=== PATIENT | male | born 1995 | race African-American/Black ===

== ENCOUNTER 2022-12-30 16:59 | Emergency (ER) | payer MEDICAID ==
[2022-12-30] MEDS ORDERED: Ketorolac 30 MG/ML SDV IVPUSH ONE (17:22)
[2022-12-30] MEDS ORDERED: Sodium Chloride 0.9% 1,000 ML IV STA (17:22)
[2022-12-30] MEDS ORDERED: diphenhydrAMINE 50 MG/ML SDV IVPUSH ONE (17:22)
[2022-12-30] MEDS ORDERED: Sodium Chloride 0.9% 10 ML Syringe FLUSH PRN (17:22)
[2022-12-30] MEDS ORDERED: Metoclopramide 10 MG/2 ML SDV IVPUSH ONE (17:22)
[2022-12-30 17:51] LABS: BASOPHILS ABSOLUTE AUTO 0.02 K/mm3 (0.01-0.08); BASOPHILS PERCENT AUTO 0.4 % (0.1-1.2); EOSINOPHILS ABSOLUTE AUTO 0.01 K/mm3 (0.04-0.54); EOSINOPHILS PERCENT AUTO 0.2 (0.8-7.0); HEMATOCRIT 41.9 % (40.1-51.0); HEMOGLOBIN 14.7 gm/dl (13.7-17.5); IMMATURE GRAN ABSOLUTE AUTO 0.01 K/mm3 (0.00-0.10); IMMATURE GRAN PERCENT AUTO 0.2 % (<=1.0); LYMPHOCYTES ABSOLUTE AUTO 0.78 K/mm3 (1.32-3.57); LYMPHOCYTES PERCENT AUTO 15.2 % (21.8-53.1); MEAN CORPUSCULAR HEMOGLOBIN 30.1 pg (25.7-32.2); MEAN CORPUSCULAR HGB CONC 35.1 g/dl (32.2-35.5); MEAN CORPUSCULAR VOLUME 85.7 fl (79.0-92.2); MEAN PLATELET VOLUME 10.1 fl (9.4-12.3); MONOCYTES ABSOLUTE AUTO 0.84 K/mm3 (0.30-0.82); MONOCYTES PERCENT AUTO 16.4 % (5.3-12.2); NEUTROPHILS ABSOLUTE AUTO 3.47 K/mm3 (1.78-5.38); NEUTROPHILS PERCENT AUTO 67.6 % (34.0-67.9); PLATELET COUNT,PLT 159 K/mm3 (163-337); RED BLOOD CELL COUNT 4.89 M/mm3 (4.63-6.08); WHITE BLOOD CELL COUNT,WBC 5.13 K/mm3 (4.23-9.07)
[2022-12-30 18:46] LABS: A/G RATIO 1.1 (1-2); ALBUMIN 3.9 g/dl (3.4-5.0); ANION GAP 12.8 (5-15); BILIRUBIN TOTAL 0.3 mg/dL (0.2-1.0); BUN/CREATININE RATIO 9.4 (14-18); C-REACTIVE PROTEIN 0.5 mg/dL (<1.0); CREATININE 1.6 mg/dL (0.7-1.3); EST CRCL DRUG DOSING (CG) 62.29 mL/min; POTASSIUM,K 3.8 mEq/L (3.5-5.1); PROTEIN TOTAL,TP 7.6 g/dl (6.4-8.2)
== END 2022-12-30 19:55 | disposition home or self-care (01) ==
LOC: JD.ED 16:59
DX: R51.9 Headache, unspecified (principal)
CPT/HCPCS: 36415; 70450; 80053; 85025; 86140; 96361; 96374; 96375; 99284; J1200; J1885; J2765; J3490; J7030

== ENCOUNTER 2024-06-24 11:45 | Emergency (ER) | payer BC, OTHER | END 2024-06-24 13:20 | disposition home or self-care (01) | LOC: JD.ED 11:45 | DX: J01.90 Acute sinusitis, unspecified (principal); Z79.899 Other long term (current) drug therapy | CPT/HCPCS: 71046; 71046-26; 87428-QW; 99282; 99285 ==